=== PATIENT | female | born 1990 | race Caucasian/White ===

== ENCOUNTER 2019-01-24 08:45 | Emergency (ER) | payer SELFPAY ==
--- NOTE | 2019-01-24 08:59 | EDPHY ---
H & P Stated Complaint: panic attack Time Seen by Provider: 01/24/19 08:53 HPI/ROS: HPI: This is a 28-year-old female who presents with Chief Complaint: Panic attack Location: Psychiatric Quality: Panic attack Duration: Prior to arrival Signs and Symptoms: + shortness of breath at rest, no shortness of breath on exertion, no cough, no chest pain, no palpitations, no lower extremity edema, no wheezing, no orthopnea, no paroxysmal nocturnal dyspnea, no fever, no injury/ trauma, no hemoptysis, + carpal pedal spasms, + inability to catch her breath Timing: Acute, resolved Severity: Moderate Context: Patient reports that she only drank and ate a Red Bull this morning. She drove her car to the store to get a bagel as she was feeling "jittery." She reports that she has been having a lot of anxiety as she is recently and has been "very hard on her." She reports that she was feeling generalized weakness and faintness. She believes that she had a panic attack and started to breathe rapidly and unable to catch her breath. Patient remembers closing her car door as she was going across the street to get a bagel and then EMS standing over her. EMS upon arrival reported a blood sugar of 68. Patient is a former IV drug user-sober 3 years. Reports that she ate dinner last night and that was her only meal yesterday. No incontinence or tongue biting noted by EMS. Patient is extremely concerned about cost she does not have health insurance until April 2019. No history of seizures. Modifying Factors: None Comment: ROS: A comprehensive 10 system review of systems is otherwise negative aside from elements mentioned in the history of present illness. MEDICAL/SURGICAL/SOCIAL HISTORY: Medical history: Former IV drug user, sober 3 years. Has Nexplanon and does not have regular menses. 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 Lives in [place]. Recently . CONSTITUTIONAL: Well-developed, well-nourished, young adult white female, awake and alert, no obvious distress HEENT: Atraumatic and normocephalic, PERRL, EOMI. Nares patent; no rhinorrhea; no nasal mucosal edema. Tympanic membranes clear. Oropharynx clear, no exudate , no tongue trauma, and moist pink mucosa. Airway patent. No lymphadenopathy. No meningismus. No carotid bruits. Cardiovascular: Normal S1/S2, regular rate, regular rhythm, without murmur rub or gallop. PULMONARY/CHEST: Symmetrical and nontender. Clear to auscultation bilaterally. Good air movement. No accessory muscle usage. ABDOMEN: Soft, nondistended, nontender, no rebound, no guarding, no peritoneal signs, no masses or organomegaly. No CVAT. EXTREMITIES: 2/2 pulses, strength 5/5, no deformities, no clubbing, no cyanosis or edema. NEUROLOGICAL: no focal neuro deficits. GCS 15. Cranial nerves 2-12 grossly intact. SKIN: Warm and dry, no erythema. no rash. Good capillary refill. Source: Patient Exam Limitations: No limitations - Personal History LMP (Females 10-55): Extended Cycle BCP/Inj Current Tetanus/Diphtheria Vaccine: Yes Current Tetanus Diphtheria and Acellular Pertussis (TDAP): Yes - Medical/Surgical History Hx Asthma: No Hx Chronic Respiratory Disease: No Hx Diabetes: No Hx Cardiac Disease: No Hx Renal Disease: No Hx Cirrhosis: No Hx Alcoholism: No Hx HIV/AIDS: No Hx Splenectomy or Spleen Trauma: No Other PMH: knee surgery otherwise healthy - Social History Smoking Status: Current every day smoker Constitutional: Initial Vital Signs Temperature (C) 36.7 C 01/24/19 08:47 Heart Rate 97 01/24/19 08:47 Respiratory Rate 16 01/24/19 08:47 Blood Pressure 144/96 H 01/24/19 08:47 O2 Sat (%) 96 01/24/19 08:47 O2 Delivery Mode Room Air Allergies/Adverse Reactions: No Known Allergies Allergy (Unverified 01/24/19 08:52) Home Medications: Medication Instructions Recorded NK [No Known Home Meds] 01/24/19 Medical Decision Making - Diagnostics EKG Interpretation: 12 lead EKG: Indication: Syncope Rhythm: Normal sinus rhythm, rate of 85 beats per minute [place]: Normal Intervals: Normal QRS: Normal ST segments: Normal INTERPRETATION: Normal EKG The 12 lead EKG was interpreted by myself pain and with attending. ED Course/Re-evaluation: Vital signs reviewed and stable upon arrival. Placed on tugger operator. EKG, IV access, laboratory studies ordered Patient has difficult peripheral IV access due to history of IV drug use. She is drinking juice at bedside. EKG my read shows normal sinus rhythm with a rate of 85 beats per minute. No acute ischemic changes. 1000: Macrocytosis without anemia noted. No signs of electrolyte imbalance. No acute kidney injury. Serum glucose 103 Advised stress reduction, regular eating patterns and meals. [facility]. No signs of CVA/acute coronary syndrome/arrhythmias/seizure disorder/ This patient was seen under the supervision of my secondary supervising physician. I evaluated care for this patient independently. Differential Diagnosis: Syncope including but not limited to vasovagal syncope, arrhythmia, dehydration , and blood loss. - Data Points Laboratory Results: Laboratory Results 01/24/19 09:40 01/24/19 09:40 01/24/19 01/24/19 01/24/19 09:40 09:40 09:40 WBC 8.90 10^3/uL 10^3/uL (3.80-9.50) RBC 4.17 10^6/uL L 10^6/uL (4.18-5.33) Hgb 15.2 g/dL g/dL (12.6-16.3) Hct 42.0 % % (38.0-47.0) MCV 100.7 fL H fL (81.5-99.8) MCH 36.5 pg H pg (27.9-34.1) MCHC 36.2 g/dL g/dL (32.4-36.7) RDW 12.5 % % (11.5-15.2) Plt Count 152 10^3/uL 10^3/uL (150-400) MPV 9.6 fL fL (8.7-11.7) Neut % (Auto) 81.9 % H % (39.3-74.2) Lymph % (Auto) 8.5 % L % (15.0-45.0) [place] % (Auto) 7.9 % % (4.5-13.0) Eos % (Auto) 0.9 % % (0.6-7.6) Baso % (Auto) 0.4 % % (0.3-1.7) Nucleat RBC Rel Count 0.0 % % (0.0-0.2) Absolute Neuts (auto) 7.28 10^3/uL H 10^3/uL (1.70-6.50) Absolute Lymphs (auto) 0.76 10^3/uL L 10^3/uL (1.00-3.00) Absolute Monos (auto) 0.70 10^3/uL 10^3/uL (0.30-0.80) Absolute Eos (auto) 0.08 10^3/uL 10^3/uL (0.03-0.40) Absolute Basos (auto) 0.04 10^3/uL 10^3/uL (0.02-0.10) Absolute Nucleated RBC 0.00 10^3/uL 10^3/uL (0-0.01) Immature Gran % 0.4 % % (0.0-1.1) Immature Gran # 0.04 10^3/uL 10^3/uL (0.00-0.10) Sodium 138 mEq/L mEq/L (135-145) Potassium 3.6 mEq/L mEq/L (3.5-5.2) Chloride 102 mEq/L mEq/L (97-110) Carbon Dioxide 25 mEq/l mEq/l (22-31) Anion Gap 11 mEq/L mEq/L (6-14) BUN 17 mg/dL mg/dL (7-23) Creatinine 0.7 mg/dL mg/dL (0.6-1.0) Estimated GFR > 60 Glucose 103 mg/dL H mg/dL (70-100) Calcium 9.4 mg/dL mg/dL (8.5-10.4) Magnesium 2.0 mg/dL mg/dL (1.6-2.3) Beta HCG, Qual NEGATIVE Departure - Departure Disposition: Home, Routine, Self-Care Clinical Impression: Nondiabetic hypoglycemia, Stress response Condition: Good Instructions: Stress (ED), Non-diabetic Hypoglycemia (ED), What to Do if Your Blood Sugar is Low (ED) Additional Instructions: Please practice stress reduction techniques. Consume a minimum of 8-10 glasses of water or electrolyte fluid replacement drinks that include Gatorade, Powerade, Pedialyte. Eat a well-balanced diet with a minimum of 3 meals per day. [facility]. [facility]. Referrals: [facility],. [Clinic] - As per Instructions [facility] [Clinic] - As per Instructions
[2019-01-24] MEDS ORDERED: NS 1,000 ML IV ONE (09:05)
[2019-01-24 09:56] LABS: PLATELET COUNT 152 10^3/uL (150-400)
[2019-01-24 10:10] VITALS: BP 134/93
--- NOTE | 2019-01-24 15:17 | CPEKG ---
Test Reason : OPEN Blood Pressure : / mmHG Vent. Rate : 085 BPM Atrial Rate : 086 BPM P-R Int : 130 ms QRS Dur : 087 ms QT Int : 382 ms P-R-T Axes : 075 050 032 degrees QTc Int : 455 ms Sinus rhythm Confirmed by Jess Amor ([id number]) on 01/24/2019 3:17:43 PM Referred By: JESS AMOR Confirmed By:Jess Amor
== END 2019-01-24 10:48 | disposition home or self-care (01) ==
DX: E16.2 Hypoglycemia, unspecified (principal); F43.9 Reaction to severe stress, unspecified